=== PATIENT | female | born 2005 | race Caucasian/White ===

== ENCOUNTER 2023-07-28 17:22 | Emergency (ER) | payer BC, SELFPAY ==
[2023-07-28 17:39] VITALS: BP 128/79; PULSE 125; RESP 16; TEMP 37.1; O2SAT 100
--- NOTE | 2023-07-28 18:40 | ED.FEMALEGU ---
HPI - Female Genitourinary General Chief complaint: Urogenital-Female Stated complaint: Vaginal Infection Time Seen by Provider: 07/28/23 18:40 Source: patient, RN notes reviewed and old records reviewed Mode of arrival: ambulatory Limitations: no limitations History of Present Illness HPI Narrative: 18 year old female who presents to express care with complaints of some burning and irritation with urination. Patient denies any vaginal discharge but did have concern for unprotected intercourse 2 month ago. Patient reports that she does have some perineal itching and did try some OTC Monistat.Patient reports that she does have some history os UTI when she was younger. Patient reports that she has not been sexually active for 2 months. MD elicited complaint: UTI Pertinent past history: other (previous uti) Onset (ago): week(s) Location of symptoms: perineum Severity scale (1-10): 1 Related Data Home Medications Medication Instructions Recorded Confirmed norethindrone 1 mg-ethinyl 1 tablet PO DAILY 07/28/23 07/28/23 estradiol 10 mcg (24)-iron 10 mcg(2) tablet (Lo Loestrin Fe) Allergies Allergy/AdvReac Type Severity Reaction Status Date / Time amoxicillin Allergy Hives Verified 07/28/23 17:53 Review of Systems Review of Systems: CONSTITUTIONAL: Denies fever, chills, or sweats. CARDIOVASCULAR: Denies chest pain, palpitations, or edema. RESPIRATORY: Denies cough or dyspnea. GASTROINTESTINAL: Denies abdominal pain, nausea, vomiting, or diarrhea. GENITOURINARY: Reports dysuria, , urgency. Denies flank pain or hematuria. SKIN: Denies rash or some perineal itching MUSCULOSKELETAL: Denies back pain or myalgia. Denies CVA tenderness NEUROLOGIC: Denies headache All systems reviewed & are unremarkable except as noted in HPI and below PMFSH Past Medical History Medical History (Updated 07/30/23 @ 23:36 by Leti Grover NP) Urinary tract infection Social History Social History (Updated 07/30/23 @ 23:31 by Leti Grover NP) Smoking status: Never smoker Substance use type: does not use Occupation/Education: student Gender identity (if verbalized by the patient): Female Comments At time of signature, agree with nursing past medical, surgical, social and family history. There is no relevant family history pertinent to the presenting complaint Exam Narrative: GENERAL: Well-appearing, well-nourished, and in no acute distress. HEAD: Normocephalic, atraumatic. NECK: Supple.no lymphadenopathy CHEST: Clear to auscultation. No respiratory distress.SAO2 100% on room air HEART: Regular rate and rhythm. No murmur heard. Normal peripheral pulses. ABDOMEN: Soft, nontender, nondistended, normal active bowel sounds. No CVA tenderness burning and irritation with urination EXTREMITIES: Normal range of motion. No edema. SKIN: Warm, dry, no rash. NEURO: No focal deficits. Alert and oriented x3. Course Course Emergency Course: Patient is aware of diagnosis, understands and agrees to treatment plan.? Anticipatory guidance given.? Patient agrees to follow-up as directed and is aware of reasons to seek care at the emergency department. Portions of this record may have been created with voice recognition software Level of Care: Express Care Visit Vital Signs Vital signs: Vital Signs Temperature 37.1 C 07/28/23 17:39 Pulse Rate 125 H 07/28/23 17:39 Respiratory Rate 16 07/28/23 17:39 Blood Pressure 128/79 07/28/23 17:39 Pulse Oximetry 100 07/28/23 17:39 Oxygen Delivery Room Air 07/28/23 17:39 Temperature 37.1 C 07/28/23 17:39 Pulse Rate 125 H 07/28/23 17:39 Respiratory Rate 16 07/28/23 17:39 Blood Pressure 128/79 07/28/23 17:39 Pulse Oximetry 100 07/28/23 17:39 Oxygen Delivery Room Air 07/28/23 17:39 MDM - Female Genitourinary MDM Narrative Medical decision making narrative: Exam findings and UA show no acute concerns or changes; patient is non-toxic
[2023-07-29 21:11] LABS: Trichomonas Vag PCR NOT DETECTED (NOT DETECTE)
[2023-07-29 21:36] LABS: Chlamydia trachomatis NOT DETECTED (NOT DETECTE); Neisseria gonorrhoeae PCR NOT DETECTED (NOT DETECTE)
== END 2023-07-28 19:02 | disposition home or self-care (01) ==
PROVIDERS: Emergency Provider Registered Nurse
DX: N39.0 Urinary tract infection, site not specified (principal); B37.31 Acute candidiasis of vulva and vagina
CPT/HCPCS: 81003; 87086; 87088; 87147; 87491; 87591; 87661; 99214; G0463

== ENCOUNTER 2024-01-19 16:53 | Emergency (ER) | payer BC, SELFPAY ==
[2024-01-19 16:57] VITALS: BP 133/80; PULSE 98; RESP 16; TEMP 36.7; O2SAT 100
--- NOTE | 2024-01-19 17:02 | ED.GENADULT ---
HPI - General Adult General Chief complaint: Urogenital-Female Stated complaint: Uti Symptoms Source: patient, RN notes reviewed and old records reviewed Mode of arrival: ambulatory Limitations: no limitations History of Present Illness HPI narrative: 18-year-old female presents to [facility] with complaints dysuria, frequency, urgency this started yesterday. Patient also complaining of vaginal irritation and vaginal itching that started 1 week ago. Patient denies concerns for STDs. Patient denies vaginal discharge. Related Data Allergies Allergy/AdvReac Type Severity Reaction Status Date / Time amoxicillin Allergy Hives Verified 01/19/24 17:00 Review of Systems Constitutional: Constitutional: Reports no additional constitutional complaints, Denies body ache(s), Denies chills, Denies fatigue, Denies fever(s) and Denies headache(s) Eyes: Eyes: Reports no additional eye complaints and Denies blurry vision ENT: Reports system reviewed and no additional complaints, except as documented, Denies vertigo, Denies dizziness, Denies ear discharge, Denies otalgia, Denies facial pain, Denies headache(s), Denies nasal congestion, Denies nasal discharge, Denies sinus pain, Denies sinus pressure and Denies sore throat Cardiovascular: Cardiovascular: Reports no additional cardiovascular complaints, Denies chest pain, Denies chest pain at rest, Denies rapid heart rate and Denies dyspnea Respiratory: Respiratory: Reports no additional respiratory complaints, Denies chest congestion, Denies cough, Denies pain on inspiration, Denies pain with cough and Denies dyspnea Gastrointestinal: Gastrointestinal: Denies abdominal pain, Denies diarrhea, Denies nausea and Denies vomiting Genitourinary: Genitourinary: Denies hematuria, Reports nocturia, Denies genital lesions, Reports dysuria, Denies flank pain, Reports urinary urgency and Reports vaginal pruritus Integumentary/Breasts: Skin/Breast: Denies rash Neurologic: Reports system reviewed and no additional complaints, except as documented, Denies vertigo, Denies dizziness and Denies headache(s) Endocrine: Endocrine: Denies fatigue PMFSH Past Medical History Medical History Urinary tract infection Social History Social History Smoking status: Never smoker Substance use type: does not use Occupation/Education: student Gender identity (if verbalized by the patient): Female Comments At the time of my signature, I reviewed and agree with the nursing past medical, surgical, social, and family history. There is no relevant family history pertinent to the patient complaint. Exam Const: General: cooperative, healthy appearing, no acute distress and well nourished Nutritional Appearance: well nourished Orientation/consciousness: patient oriented x3 Limitations: no limitations HENMT: Head: normal to inspection and normocephalic Ears: external ears normal Face/Nose/Sinus: normal facial exam Face and sinus: normal facial exam Mouth: Yes Normal oral and palatal mucosa present, Yes oropharynx normal and Yes moist mucous membranes Eyes: General: appearance normal, both eyes and all related structures Sclera: sclerae normal Pupils: Equal, round and reactive pupils present Resp: Effort & Inspection: normal respiratory effort, able to speak in complete sentences, no audible wheezes, no cough, no respiratory distress and no retractions GI: GI Palp: No abdominal tenderness, Yes Soft to palpation, No Firmness to palpation present (GI), No Tenderness to palpation present (GI), No Guarding due to palpation present (GI), No Rigid due to palpation, Yes No hepatosplenomegaly present, No Splenomegaly present and No Palpable mass present : General: Yes bladder normal to inspection, Yes bladder normal to palpation, No CVA tenderness and Yes no CVA tenderness Skin: General skin exam: normal c
== END 2024-01-19 17:24 | disposition home or self-care (01) ==
PROVIDERS: Emergency Provider Registered Nurse
DX: B37.31 Acute candidiasis of vulva and vagina (principal); N30.00 Acute cystitis without hematuria
CPT/HCPCS: 81003; 81025; 87086; 99213; G0463

== ENCOUNTER 2024-11-20 13:58 | Emergency (ER) | payer BC, SELFPAY ==
--- NOTE | 2024-11-20 14:12 | ED_ITS ---
HPI - URI/Sore Throat General Chief Complaint: Upper Respiratory Infection Stated Complaint: SORE THROAT Time Seen by Provider: 11/20/24 14:18 Source: patient and RN notes reviewed Mode of arrival: ambulatory Limitations: no limitations History of Present Illness HPI Narrative: 19-year-old female presents with concern for sore throat, swollen lymph nodes on the left side. Reports she has had nasal drainage, lymph node swelling, fatigue for about 9 days and started having a sore throat on Friday. MD elicited complaint: sore throat Related Data Home Medications ?Medication ?Instructions ?Recorded ?Confirmed ?Last Taken ?Type No Home Medications 11/20/24 11/20/24 Unknown History Allergies Allergy/AdvReac Type Severity Reaction Status Date / Time amoxicillin Allergy Hives Verified 11/20/24 14:18 Review of Systems Review of Systems: CONSTITUTIONAL: Denies malaise, chills, sweats, or fever. EYES: Denies visual changes, redness, or discharge. ENT: Reports rhinorrhea, congestion, and sore throat. CARDIOVASCULAR: Denies chest pain, palpitations, or edema. RESPIRATORY: Reports occasional cough. Denies dyspnea. GASTROINTESTINAL: Denies abdominal pain, nausea, vomiting, diarrhea SKIN: Denies rash or itching. MUSCULOSKELETAL: Denies myalgia. NEUROLOGIC: Denies headache. All systems reviewed & are unremarkable except as noted in HPI and below PMFSH Past Medical History Medical History Urinary tract infection Social History Social History Smoking status: Never smoker Substance use type: does not use Occupation/Education: student Gender identity (if verbalized by the patient): Female Comments At time of signature, agree with nursing past medical, surgical, social and family history. There is no relevant family history pertinent to the presenting complaint Exam Narrative: GENERAL: Well-appearing, well-nourished, and in no acute distress. HEAD: Normocephalic EYES: PERRLA, conjunctivae clear ENT: Nares clear. Mucous membranes moist. TM pearly fraire with dull light reflex bilaterally; no tragal tenderness. Oropharynx not erythematous without lesions. Tonsils not enlarged and without exudate, no drooling, no hoarseness, no trismus, uvula midline. NECK: Supple. Left cervical lymphadenopathy CHEST: Clear to auscultation, breath sounds equal. No wheezing, rhonchi, rales, or stridor. No respiratory distress, speaks in full sentences. HEART: Regular rate and rhythm. No murmur heard. SKIN: Warm, dry, no rash. NEURO: Alert and oriented x3. PSYCH: Normal mood and affect Course Course Emergency Course: Patient is aware of diagnosis, understands and agrees to treatment plan. Anticipatory guidance given. Patient agrees to follow-up as directed and is aware of reasons to seek care at the emergency department. Portions of this record may have been created with voice recognition software Level of Care: Express Care Visit Vital Signs Vital signs: Vital Signs Temperature 99.3 F 11/20/24 14:15 Pulse Rate 129 H 11/20/24 14:15 Respiratory Rate 16 11/20/24 14:15 Blood Pressure 125/78 11/20/24 14:15 Pulse Oximetry 99 11/20/24 14:15 Temperature 99.3 F 11/20/24 14:15 Pulse Rate 129 H 11/20/24 14:15 Respiratory Rate 16 11/20/24 14:15 Blood Pressure 125/78 11/20/24 14:15 Pulse Oximetry 99 11/20/24 14:15 Reviewed. MDM - URI/Sore Throat MDM Narrative Medical decision making narrative: Differential diagnosis considered: Patel virus, strep pharyngitis, allergic rhinitis, upper respiratory tract infection, sinusitis, rhinosinusitis, nasopharyngitis. viral pharyngitis, otitis media, otitis externa, pneumonia, bronchitis, viral cough syndrome, viral syndrome, and influenza. Exam findings show no acute concerns or changes; patient is non-toxic appearing and is in no distress. Patient is appropriate for outpatient treatment and follow-up. Lab Data Attestation: I reviewed the patient's lab results. Critical Care Time Critical Care Time Critical Care Time: No Discharge Plan Discharge Clinical Impression: Mononucleosis Patient Disposition: Home, Self-Care Condition: Stable Instructions: Mononucleosis (ED) Additional Instructions: 1) Please follow-up with your primary care doctor in the next 1-2 days. 2) If you have any worsening of symptoms or any other urgent concerns please go to the ER. 3) Please continue taking your home medications as usual. You can alternate Tylenol and ibuprofen for pain or fever 4) Please read and follow information included in discharge instructions. Patient Language: Vietnamese Prescriptions: No Action No Home Medications Follow-up/Referrals: UNKNOWN,DOCTOR [Primary Care Provider] - Time of Disposition: 14:42
[2024-11-20 14:15] VITALS: BP 125/78; PULSE 129; RESP 16; TEMP 37.4; O2SAT 99
[2024-11-20 14:23] LABS: EDSTREPNEGPOS1 Negative (Negative)
[2024-11-20 14:45] LABS: EDMONONEGPOS Positive (Negative)
== END 2024-11-20 15:15 | disposition home or self-care (01) ==
PROVIDERS: Emergency Provider Nurse Practitioner
DX: B27.90 Infectious mononucleosis, unspecified without complication (principal)
CPT/HCPCS: 36416; 86308; 87081; 87880; 99213; G0463